=== PATIENT | female | born 1960 | race Two or more races ===

== ENCOUNTER 2024-05-14 18:28 | Emergency (ER) | payer MEDICARE, SELFPAY ==
--- NOTE | 2024-05-14 | ECG_ITS ---
Test Reason : CP Blood Pressure : */* mmHG Vent. Rate : 95 BPM Atrial Rate : 95 BPM P-R Int : 164 ms QRS Dur : 76 ms QT Int : 336 ms P-R-T Axes : 43 24 24 degrees QTcB Int : 422 ms Normal sinus rhythm Normal ECG No previous ECGs available Referred By: Generic ED Physician Electronically Signed By: SUZY MONTES MD
--- NOTE | ~2024-05-14 | XR_ITS ---
CLINICAL HISTORY: productive cough, cp EXAM: Two views of the chest. COMPARISON: None FINDINGS: Normal cardiac, mediastinal, and hilar contours. Normal heart size. No pleural effusion or pneumothorax. Lungs are clear. No acute bone finding. IMPRESSION: 1. No acute cardiopulmonary process demonstrated. This document has been electronically signed by: Michael Sibley MD on 05/14/2024 21:11:38
--- NOTE | ~2024-05-14 | CT_ITS ---
CLINICAL HISTORY: wry neck CT cervical spine without contrast Comparison: None Findings: The alignment of the cervical spine is normal. There is no fracture. Disc bulge at C5-6 probably causes mild central canal stenosis and disc bulge at C6-7 may cause moderate central canal stenosis. There is multilevel mild facet and uncovertebral joint osteoarthritis with associated mild neuroforaminal stenoses. There is mild carotid artery calcification. IMPRESSION: 1. No acute findings. 2. Cervical spondylosis. This document has been electronically signed by: Neal Chase MD on 05/15/2024 03:46:54
[2024-05-14 18:40] VITALS: BP 129/78; PULSE 94; O2SAT 98
--- NOTE | 2024-05-14 19:10 | ED.GENADULT ---
HPI - General Adult General Chief complaint: Chest Pain Stated complaint: chest pain upon respiration Time Seen by Provider: 05/15/24 01:43 Source: patient Limitations: no limitations History of Present Illness ED Provider: Flavia Bear PA-C HPI narrative: 64 y/o F with hx of osteoarthritis, presents with neck pain x5 days. Patient states she has been sleeping on an air mattress over the past month. She has had progressive discomfort of the left lateral neck, that radiates to the left shoulder and upper back at times. Patient states her neck has become progressively stiff. Denies weakness of left upper extremity, chest pain, paresthesia. Denies recent illness or fever. There was no preceding trauma. Patient does not have a headache. Related Data Previous Rx's ?Medication ?Instructions ?Recorded diazepam 5 mg tablet (Valium) 5 mg PO BID-TID PRN pain, moderate 05/15/24 #15 tabs ketorolac 10 mg tablet 10 mg PO Q6H PRN pain #20 tabs 05/15/24 Allergies Allergy/AdvReac Type Severity Reaction Status Date / Time No Known Allergies Allergy Verified 05/14/24 19:16 Review of Systems Review of Systems: Yes all other systems are reviewed and are negative Constitutional: Constitutional: Denies fatigue, Denies fever(s) and Denies headache(s) ENT: Denies dizziness, Denies headache(s) and Reports neck pain Cardiovascular: Cardiovascular: Denies chest pain and Denies dyspnea Respiratory: Respiratory: Denies cough and Denies dyspnea Gastrointestinal: Gastrointestinal: Denies abdominal pain, Denies nausea and Denies vomiting Musculoskeletal: Musculoskeletal: Reports back pain, Denies muscle weakness, Reports neck pain, Denies numbness and Denies tingling Neurologic: Denies dizziness, Denies headache(s), Denies numbness and Denies tingling Endocrine: Endocrine: Denies fatigue PMF Past Medical History Attestation statement: The following information was validated with the patient. Physical Exam ED Vital Signs: Vital Signs - 24 hr 05/14/24 19:14 05/15/24 01:00 05/15/24 02:59 Temperature 99.0 F 98.3 F 98.2 F Pulse Rate 96 102 H 99 Respiratory Rate 16 15 18 Blood Pressure 148/70 H 138/83 129/86 Pulse Oximetry 97 100 96 Oxygen Delivery Method Room Air Room Air Room Air BMI result Body Mass Index 33.3 Const Other: Alert Orientation/consciousness: patient oriented x3 Neck Other: Wry neck, patient holding her head to the right side, minimal range of motion in all directions, pain elicited over left lateral neck and upper back with range of motion. After being medicated with a muscle relaxant and anti-inflammatory, the patient's range of motion dramatically improved no meningeal signs Resp Effort & Inspection: normal respiratory effort Cardio Other: Normal peripheral perfusion Skin Other: Warm dry no rash Neuro General: patient oriented x3, no focal motor deficits and CN's II-XI intact bilaterally Extrem Other: Strength 5/5 bilateral upper extremities with resistance Psych Other: Cooperative Course Course Course Narrative: RME, this is a rapid medical exam performed by Fantasma Evans please refer to primary provider for complete H&P- 64 year old female presents for evaluation of chest pain for the last 5 days. She also complains of neck pain and stiffness. She arrives by ambulance from urgent care. She had an ekg and labs, chest x-ray are ordered. Her pain seems most consistent with musculoskeletal origin. Reevaluation(s) Reevaluation #1: After being medicated, the patient's range of motion dramatically improved. Medications Administered Discontinued Medications Generic Name Dose Route Start Last Admin Trade Name Freq PRN Reason Stop Dose Admin Diazepam 5 mg 05/15/24 02:37 05/15/24 02:55 Diazepam 5 Mg Tablet PO 05/15/24 02:38 5 mg ONCE ONE Administration Ketorolac Tromethamine 15 mg 05/15/24 02:37 05/15/24 02:55 Ketorolac Tromethamine 15 Mg/Ml Vial IM 05/15/24 02:38 15 mg ONCE ONE Administration Methylprednisolone 8 mg 05/15/24 02:37 05/15/24 03:52 Methylprednisolone 4 Mg Tablet PO 05/15/24 02:38 8 mg ONCE ONE Administration Medical Decision Making Medical Decision Making [facility] Narrative: 64 y/o F with hx of osteoarthritis, presents with neck pain x5 days. Patient states she has been sleeping on an air mattress over the past month. She has had progressive discomfort of the left lateral neck, that radiates to the left shoulder and upper back at times. Patient states her neck has become progressively stiff. Denies weakness of left upper extremity, chest pain, paresthesia. Denies recent illness or fever. There was no preceding trauma. Patient does not have a headache. Problem: Known arthritis History: Per patient I have considered the following differential diagnoses: Cervical strain/spasm, arthritis, meningitis, compression fracture Plan: The patient is here with a stiff neck. We will be obtaining imaging. We will be giving Valium and an anti-inflammatory. Thought about meningitis, however she has had no underlying illness she is afebrile, her exam was not consistent with meningitis, there are no true meningeal signs on exam. She could have a compression fracture, however there was no trauma. I have independently reviewed the following tests: CT neck: Findings: The alignment of the cervical spine is normal. There is no fracture. Disc bulge at C5-6 probably causes mild central canal stenosis and disc bulge at C6-7 may cause moderate central canal stenosis. There is multilevel mild facet and uncovertebral joint osteoarthritis with associated mild neuroforaminal stenoses. There is mild carotid artery calcification. IMPRESSION: 1. No acute findings. 2. Cervical spondylosis. This document has been electronically signed by: Neal Chase MD on 05/15/2024 03:46:54 Lab Data 05/14/24 20:22 05/14/24 20:23 Labs: Lab Results 05/14/24 05/14/24 Range/Units 20:22 20:23 WBC 10.9 H (4.8-10.8) X10*3/uL RBC 5.15 (4.20-5.50) X10*6/uL Hgb 13.4 (12.0-16.0) g/dl Hct 38.4 (37.0-47.0) % MCV 74.6 L (80.0-98.0) fL MCH 26.0 L (27.0-33.0) pg MCHC 34.9 (31.0-35.0) g/dl RDW 15.0 (11.0-16.0) % Plt Count 276 (160-400) X10*3/uL MPV 10.1 (9.4-12.3) fL Immature Gran % (Auto) 0.4 (0.0-0.4) % Neut % (Auto) 62.4 (45-73) % Lymph % (Auto) 27.5 (20-40) % [place] % (Auto) 8.5 (2-11) % Eos % (Auto) 0.6 (0-4) % Baso % (Auto) 0.6 (0-2) % Lymph # (Auto) 3.0 (1.2-4.9) X10*3/uL [place] # (Auto) 0.9 (0.1-1.2) X10*3/uL Eos # (Auto) 0.1 (0.0-0.4) X10*3/uL Baso # (Auto) 0.1 (0.0-0.2) X10*3/uL Abs Immat Gran (auto) 0.04 H (0.00-0.03) X10*3/uL Absolute Neuts (auto) 6.8 (2.0-8.3) x10*3/uL Absolute Nucleated RBC 0.000 (0.0-0.012) X10*3/uL Nucleated RBC % (auto) 0.0 (0.0-0.2) /100WBC Sodium 139 (135-145) mmol/L Potassium 3.9 (3.3-5.1) mmol/L Chloride 106 (96-108) mmol/L Carbon Dioxide 25 (22-29) mmol/L Anion Gap 12 (12-20) BUN 8 L (9-16) mg/dL Creatinine 0.80 (0.5-1.4) mg/dL Estim Creat Clear Calc 76.9 Estimated GFR > 60 Random Glucose 107 (60-115) mg/dL Calcium 9.1 (8.4-10.2) mg/dL Total Bilirubin 0.6 (0.0-1.0) mg/dL AST 17 (5-31) U/L ALT 9 (0-31) U/L Alkaline Phosphatase 87 (39-117) U/L Troponin I High Sens < 2.7 (<3.5-17.0) ng/L Total Protein 8.7 H (6.5-8.0) g/dL Albumin 4.0 (3.5-5.0) g/dL Influenza Type A (PCR) NEGATIVE (Negative) Influenza Type B (PCR) NEGATIVE (Negative) RSV RNA Qual (PCR) NEGATIVE (Negative) SARS-CoV-2 RNA (RT-PCR) NEGATIVE (Negative) Discharge Plan Discharge Clinical Impression: Cervical disc disease, Cervical arthritis, Cervical radiculopathy Patient Disposition: Home, Self-Care Instructions: Osteoarthritis (ED), Cervical Disc Herniation (ED), Cervical Radiculopathy (ED) Additional Instructions: The CT scan of your cervical spine revealed that you have significant degenerative changes in your cervical spine, this is the likely cause of your discomfort and muscle pain and spasm. See home care instructions. Use the ketorolac as directed, this is an anti-inflammatory, take it with food. Use the Valium as needed for additional pain. To note this medication will cause drowsiness, do not drive or operate machinery while taking this medication. You need to follow up with the primary care, you likely will require a inventory specialist manager to manage these degenerative changes. Prescriptions: New diazepam [Valium] 5 mg tablet 5 mg PO BID-TID PRN (Reason: pain, moderate) Qty: 15 0RF ketorolac 10 mg tablet 10 mg PO Q6H PRN (Reason: pain) Qty: 20 0RF Rx Instructions: maximum total duration of 5 days from all oral, intranasal, or parenteral formulations. The patient received an intramuscular dose of Toradol here in the emergency department. Interventions: ED Discharge Assessment Last Done: 05/15/24 04:43 Discharge Date/Time: 05/15/24 05:11 Print Language: Greek
[2024-05-14 19:14] VITALS: BP 148/70; PULSE 96; RESP 16; TEMP 37.2; O2SAT 97; BMI 33.3
--- OUTSIDE RECORDS SUMMARY | 2024-05-14 19:34 | XMS_ITS | CCD ---
Author Organization [facility] [place] [address] [address] [place] [address] Care Team Providers Care Marketing Specialist Name Role Phone Unavailable Primary Care Provider Unavailabl e Allergies No known active allergies Medications gabapentin (NEURONTIN) 100 mg capsule Take 800 mg by mouth in the morning and 800 mg in the evening and 800 mg before bedtime. Active lidocaine (LIDODERM) 5 % patch 12/06/2023 Active omeprazole (PriLOSEC) [address] capsule Active tiZANidine (ZANAFLEX) 2 mg tablet Take 1 tablet every 8 hours by oral route as needed for 30 days. Active gabapentin (NEURONTIN) 800 mg tablet Take 1 tablet 3 times a day by oral route. Active amoxicillin (AMOXIL) 500 mg capsule Take 2 (two) tablets immediately. Then take 1 (one) tablet every 8 hours until finished. 18 capsule 12/19/2023 Active Active Problems Problem Noted Date Diagnosed Date Rheumatoid arthritis 08/23/2023 Chronic pain 08/23/2023 Social History Tobacco Use Types Packs/Day Years Used Date Smoking Tobacco: Never Assessed Comments Unknown Sex and Gender Information Value Date Recorded Sex Assigned at Not on file Legal Sex Female 11:55 AM PDT Gender Identity Not on file Sexual Orientation Not on file Last Filed Vital Signs Vital Sign Reading Time Taken Comments Blood Pressure 110/68 01/03/2024 1:22 PM PDT Pulse 78 01/03/2024 1:22 PM PDT Temperature - - Respiratory Rate - - Oxygen Saturation - - Inhaled Oxygen Concentration - - Weight - - Height - - Body Mass Index - - Plan of Treatment Not on file Procedures Procedure Name Priority Date/Time Associated Diagnosis Comments UL PERIODONTAL SCALING AND ROOT PLANING - FOUR OR MORE TEETH PER QUADRANT Routine 01/04/2024 1:00 PM PDT ADJUNCTIVE PRE-DIAGNOSTIC TEST THAT AIDS IN DETECTION OF MUCOSAL ABNORMALITIES Routine 01/03/2024 1:15 PM PDT PERIODIC ORAL EVALUATION - ESTABLISHED PATIENT Routine 01/03/2024 1:15 PM PDT Encounter for dental examination and cleaning without abnormal findings PANORAMIC RADIOGRAPHIC IMAGE Routine 08/23/2023 2:00 PM PDT from Last 3 Months or Most Recently Relevant to Health Maintenance
--- OUTSIDE RECORDS SUMMARY | 2024-05-14 19:34 | XMS_ITS ---
Author Organization [facility] [place] [address] [place] [address] Care Team Providers Care Food Service Associate Name Role Phone Unavailable Unavailable Unavailable Surgery Details Not on file Complications Check Surgery Details section. Procedure Estimated Blood Loss Check Surgery Details section. Procedure Findings Check Surgery Details section. Procedure Specimens Taken Check Surgery Details section.
--- OUTSIDE RECORDS SUMMARY | 2024-05-14 19:34 | XMS_ITS | Clinical Summary ---
Author Organization [facility] Address [address] [place] [address] Care Team Providers Care Realtime Captioner Name Role Phone Unavailable Primary Care Provider [...] Mass Index - - Plan of Treatment Health Maintenance Due Date Last Done Comments Periodontal Maintenance 1958 Velscope Screening 07/03/2024 01/03/2024 Dental Oral Exam 07/04/2024 01/03/2024 Dental X-Ray: Bitewings 07/04/2024 01/03/2024 Scaling and Root Planing 2026 01/04/2024, 05/2023 Dental X-Ray: Panoramic 08/24/2026 08/24/2023, 08/22 Dental X-Ray: Full Mouth 01/04/2027 01/04/2024 Meningococcal B Vaccine Aged Out No l onger eligible based on patient's age to complete this topic Procedures Procedure Name Priority Date/Time Associated Diagnosis [...] or Most Recently Relevant to Health Maintenance Insurance [employer] [facility] DUAL COMPLETE PPO
--- OUTSIDE RECORDS SUMMARY | 2024-05-14 19:34 | XMS_ITS | Encounter Summary ---
Author Organization [facility] Address [address] [place] [address] Care Team Providers Care Transitional Studies Instructor Name Role Phone Unavailable Primary Care Provider Unavailabl e Prior Encounters Date Type Department Care Team Description 01/24/2024 Telephone [facility] [address], [facility] [address] [place] [phone] Ubaldo Barnes, RENEA 01/04/2024 1:00 PM PDT Office Visit [facility] [address], [place] [address] [place] [phone] Mel Harkins RDH 01/03/2024 1:15 PM PDT Office Visit [facility] [address], [facility] [address] [place] [phone] Ubaldo Barnes, RENEA Dental caries, unspecified (Primary Dx); Unspecified diseases of pulp and periapical tissues; Encounter for dental examination and cleaning without abnormal findings 12/20/2023 Telephone [facility] [address], [place] [address] [place] [address] Ubaldo Barnes, RENEA 12/19/2023 10:00 AM PDT Office Visit [facility] [address], [place] [address] [place] [address] Ubaldo Barnes, RENEA Tooth pain (Primary Dx); Unspecified diseases of pulp and periapical tissues 12/02/2023 Orders Only [facility] [address], [place] [address] [place] [phone] Ubaldo Barnes DMD 12/02/2023 Telephone [facility] [address], [place] [address] [place] [phone] Ubaldo Barnes DMD 11/02/2023 Orders Only [facility] [address] [place], [place] [address] [place] [phone] Ubaldo Barnes, RENEA Tooth pain (Primary Dx) 10/18/2023 Telephone [facility] [address] [place], [place] [address] [place] [address] Ubaldo Barnes DMD 08/23/2023 2:00 PM PDT [address] [facility] [address] [place] [address] [place] [phone] Ubaldo Barnes, RENEA Unspecified diseases of pulp and periapical tissues (Primary Dx) Last Filed Vital Signs Vital Sign Reading [...] PER QUADRANT Routine 01/04/2024 1:00 PM PDT 18 LL PERIODONTAL SCALING AND ROOT PLANING - ONE TO THREE TEETH PER QUADRANT Routine 01/04/2024 1:00 PM PDT ADJUNCTIVE PRE-DIAGNOSTIC TEST THAT AIDS IN DETECTION OF MUCOSAL ABNORMALITIES Routine 01/03/2024 1:15 PM PDT INTRAORAL PHOTO Routine 01/03/2024 1:15 PM PDT INTRAORAL PHOTO Routine 01/03/2024 1:15 PM PDT INTRAORAL PHOTO Routine 01/03/2024 1:15 PM PDT INTRAORAL PHOTO Routine 01/03/2024 1:15 PM PDT SINGLE X-RAY Routine 01/03/2024 1:15 PM PDT BITEWINGS - FOUR RADIOGRAPHIC IMAGES Routine 01/03/2024 1:15 PM PDT ADDITIONAL X-RAY Routine 01/03/2024 1:15 PM PDT ADDITIONAL X-RAY Routine 01/03/2024 1:15 PM PDT ADDITIONAL X-RAY Routine 01/03/2024 1:15 PM PDT PERIODIC ORAL EVALUATION - ESTABLISHED PATIENT Routine 01/03/2024 1:15 PM PDT Encounter for dental examination and cleaning without abnormal findings 15 DOL AMALGAM FILLING Routine 12:00 AM PDT 2 MANDIE AMALGAM FILLING Routine 01/03/2024 12:00 AM PDT 27 GUIDED TISSUE REGENERATION, EDENTULOUS AREA - RESORBABLE BARRIER, PER SITE Routine 12/19/2023 10:00 AM PDT 27 BONE REPLACEMENT GRAFT FOR RIDGE PRESERVATION - PER SITE - MANDIBLE Routine 12/19/2023 10:00 AM PDT 27 EXTRACTION, ERUPTED TOOTH REQUIRING REMOVAL OF BONE AND/OR SECTIONING OF TOOTH Routine 12/19/2023 10:00 AM PDT Unspecified diseases of pulp and periapical tissues CBCT - PROBLEM FOCUSED Routine 2:00 PM PDT PANORAMIC RADIOGRAPHIC IMAGE Routine 08/23/2023 2:00 PM PDT BITEWING - SINGLE RADIOGRAPHIC IMAGE Routine 08/23/2023 2:00 PM PDT ADDITIONAL X-RAY Routine 08/23/2023 2:00 PM PDT SINGLE X-RAY Routine 08/23/2023 2:00 PM PDT LIMITED ORAL EVALUATION - PROBLEM FOCUSED Routine 08/23/2023 2:00 PM PDT 20 O AMALGAM FILLING Routine 08/23/2023 12:00 AM PDT 18 O AMALGAM FILLING Routine 08/23/2023 12:00 AM PDT 29 DO AMALGAM FILLING Routine 08/23/2023 12:00 AM PDT Visit Diagnoses Diagnosis Start Date Unspecified diseases of pulp and periapical tissues 08/23/2023 Tooth pain Unspecified disorder of the teeth and supporting structures 11/02/2023 Tooth pain Unspecified disorder of the teeth and supporting structures 12/19/2023 Unspecified diseases of pulp and periapical tissues 12/19/2023 Dental caries, unspecified 01/03/2024 Unspecified diseases of pulp and periapical tissues 01/03/2024 Encounter for dental examination and cleaning without abnormal findings 01/03/2024 Insurance [place] [employer] [facility] DUAL COMPLETE PPO
[2024-05-14 20:30] LABS: Basophils Absolute Auto 0.1 X10*3/uL (0.0-0.2); Basophils Percent Auto 0.6 % (0-2); Eosinophils Absolute Auto 0.1 X10*3/uL (0.0-0.4); Eosinophils Percent Auto 0.6 % (0-4); Hematocrit 38.4 % (37.0-47.0); Hemoglobin 13.4 g/dl (12.0-16.0); Imm Gran Abs Auto 0.04 X10*3/uL (0.00-0.03); Imm Gran Pct Auto 0.4 % (0.0-0.4); Lymphocytes Percent Auto 27.5 % (20-40); MANUAL DIFF FLAG NO; Mean Corpuscular HGB Conc 34.9 g/dl (31.0-35.0); Mean Corpuscular Volume 74.6 fL (80.0-98.0); Mean Platelet Volume 10.1 fL (9.4-12.3); Monocytes Absolute Auto 0.9 X10*3/uL (0.1-1.2); Monocytes Percent Auto 8.5 % (2-11); Neutrophils Absolute Auto 6.8 x10*3/uL (2.0-8.3); Neutrophils Percent Auto 62.4 % (45-73); Platelet Count 276 X10*3/uL (160-400); Red Blood Count 5.15 X10*6/uL (4.20-5.50); White Blood Count 10.9 X10*3/uL (4.8-10.8)
[2024-05-14 20:43] LABS: Alanine Aminotransferase 9 U/L (0-31); Alkaline Phosphatase 87 U/L (39-117); Anion Gap 12 (12-20); Aspartate Amino Transferase 17 U/L (5-31); Bilirubin Total 0.6 mg/dL (0.0-1.0); Blood Urea Nitrogen 8 mg/dL (9-16); Calcium 9.1 mg/dL (8.4-10.2); Carbon Dioxide 25 mmol/L (22-29); Chloride 106 mmol/L (96-108); Creatinine Clr Calc Pharmacy 76.9; Estimated Glomerular Filt Rate > 60; Glucose Random 107 mg/dL (60-115); Potassium 3.9 mmol/L (3.3-5.1); Sodium 139 mmol/L (135-145); Total Protein 8.7 g/dL (6.5-8.0)
[2024-05-14 20:51] LABS: Troponin-I High Sensitivity < 2.7 ng/L (<3.5-17.0)
[2024-05-14 21:11] LABS: Influenza A PCR NEGATIVE (Negative); Influenza B PCR NEGATIVE (Negative); Resp Syncy Virus RNA Qual PCR NEGATIVE (Negative); SARS COV2 PCR INHOUSE NEGATIVE (Negative)
[2024-05-15 01:00] VITALS: BP 138/83; PULSE 102; RESP 15; TEMP 36.8; O2SAT 100
[2024-05-15] MEDS: diazePAM 5 MG TABLET PO (02:55)
[2024-05-15] MEDS: Ketorolac Tromethamine 15 MG/ML VIAL IM (02:55)
[2024-05-15 02:59] VITALS: BP 129/86; PULSE 99; RESP 18; TEMP 36.8; O2SAT 96
[2024-05-15] MEDS: methylPREDNISolone 4 MG TABLET 8 MG PO (03:52)
[2024-05-15 04:00] VITALS: BP 100/62; PULSE 90; RESP 18; TEMP 36.8; O2SAT 100
[2024-05-15 04:43] VITALS: BP 100/62; PULSE 90; RESP 18; TEMP 36.8; O2SAT 100
== END 2024-05-15 05:11 | disposition home or self-care (01) ==
PROVIDERS: Emergency Provider Emergency Medicine
DX: M50.90 Cervical disc disorder, unspecified, unspecified cervical region (principal); M47.812 Spondylosis without myelopathy or radiculopathy, cervical region; M54.12 Radiculopathy, cervical region; R07.9 Chest pain, unspecified; Z03.818 Encounter for observation for suspected exposure to other biological agents ruled out
CPT/HCPCS: 0241U; 71046; 72125; 80053; 84484; 85025; 93005; 96372; 99284; 99285; J1885

== ENCOUNTER → 2024-05-14 18:43 | Outpatient (BNV) | payer MEDICARE, SELFPAY | PROVIDERS: Emergency Provider Emergency Medicine; Visit Provider Internal Medicine Cardiovascular Disease | DX: R07.9 Chest pain, unspecified (principal) | CPT/HCPCS: 93010 ==

== ENCOUNTER → 2024-05-14 19:45 | Outpatient (BNV) | payer MEDICARE, SELFPAY | PROVIDERS: Visit Provider Radiology Diagnostic Radiology | DX: R07.9 Chest pain, unspecified (principal); R05.8 Other specified cough | CPT/HCPCS: 71046 ==

== ENCOUNTER → 2024-05-15 02:37 | Outpatient (BNV) | payer MEDICARE, SELFPAY | PROVIDERS: Emergency Provider Emergency Medicine; Visit Provider Radiology Diagnostic Radiology | DX: M47.812 Spondylosis without myelopathy or radiculopathy, cervical region (principal) | CPT/HCPCS: 72125 ==

== ENCOUNTER 2025-03-29 12:58 | Outpatient (AMB) | payer OTHER, SELFPAY ==
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
--- OUTSIDE RECORDS SUMMARY | 2025-03-29 13:04 | XMS_ITS | Clinical Summary ---
Author Organization [facility] Health Address [address] [place] [address] Care Team Providers Care Correction Officer Supervisor Name Role Phone Unavailable Primary Care Provider [...] 08/22 Dental X-Ray: Full Mouth 01/04/2027 01/04/2024 Procedures Procedure Name Priority Date/Time Associated Diagnosis [...] Most Recently Relevant to Health Maintenance Insurance [facility] COMMERCIAL [facility] DUAL COMPLETE PPO
--- OUTSIDE RECORDS SUMMARY | 2025-03-29 13:04 | XMS_ITS | Encounter Summary ---
Author Organization [facility] Health Address [address] [place] [address] Care Team Providers Care Route Delivery Manager Name Role Phone Unavailable Primary Care Provider Unavailabl e Prior Encounters Date Type Department Care Team Description 01/24/2024 Telephone [facility] [address], [facility] [place] [phone] Ubaldo Barnes, RENEA 01/04/2024 1:00 PM PDT Office Visit [facility] [address], [facility] [place] [phone] Mel Harkins [facility] 01/03/2024 1:15 PM PDT Office Visit [facility] [address], [facility] [address] [place] [address] Ubaldo Barnes, RENEA Dental caries, unspecified (Primary Dx); Unspecified diseases of pulp and periapical tissues; Encounter for dental examination and cleaning without abnormal findings 12/20/2023 Telephone [facility] [address], [facility] [address] [place] [address] Ubaldo Barnes, RENEA 12/19/2023 10:00 AM PDT Office Visit [facility] [address], [facility] [address] [place] [address] Ubaldo Barnes, DMD Tooth pain (Primary Dx); Unspecified diseases of pulp and periapical tissues 12/02/2023 Orders Only [facility] [address], [facility] [address] [place] [address] Ubaldo Barnes, RENEA 12/02/2023 Telephone [facility] [address], [facility] [address] [place] [phone] Ubaldo Barnes DMD 11/02/2023 Orders Only [facility] of [address] [place], [place] [address] [place] [phone] Ubaldo Barnes, RENEA Tooth pain (Primary Dx) 10/18/2023 Telephone [facility] [address] [place], [place] [address] [place] [address] Ubaldo Barnes DMD 08/23/2023 2:00 PM PDT Office Visit [facility] [address], [place] [address] [place] [phone] Ubaldo Barnes, RENEA Unspecified diseases of pulp [...] and cleaning without abnormal findings 01/03/2024 Insurance [email or web address] [facility] DUAL COMPLETE PPO
[2025-03-29 13:12] VITALS: BP 114/72; PULSE 69; RESP 16; TEMP 36.8; O2SAT 98; BMI 35.0
== END 2025-03-29 13:53 | disposition home or self-care (01) ==
PROVIDERS: PCP Student in an Organized Health Care Education/Training Program; Visit Provider Student in an Organized Health Care Education/Training Program
DX: E66.812 Obesity, class 2 (principal); M54.9 Dorsalgia, unspecified; G89.29 Other chronic pain; R20.0 Anesthesia of skin; Z97.4 Presence of external hearing-aid; H91.90 Unspecified hearing loss, unspecified ear; M19.90 Unspecified osteoarthritis, unspecified site; M25.561 Pain in right knee; M51.26 Other intervertebral disc displacement, lumbar region; M47.819 Spondylosis without myelopathy or radiculopathy, site unspecified; M47.812 Spondylosis without myelopathy or radiculopathy, cervical region; Z87.11 Personal history of peptic ulcer disease; R06.09 Other forms of dyspnea; K59.00 Constipation, unspecified; R20.2 Paresthesia of skin; Z99.89 Dependence on other enabling machines and devices; R26.81 Unsteadiness on feet

== ENCOUNTER 2025-03-29 12:58 | Outpatient (REF) | payer OTHER, SELFPAY ==
--- OUTSIDE RECORDS SUMMARY | 2025-03-29 14:03 | XMS_ITS | Continuity of Care Document ---
Author Organization [place] - [facility], [facility] Address [address] [place] [address] Care Team Providers Care Manager Hospice Name Role Phone SUBHA CLIFTON Primary Care Provider [phone] Assessment Encounter Date Assessment Date Assessment LastModified by Organization Details LastModified Time 01/08/2025 01/08/2025 64yo female status post left-sided otologic surgery with Dr. Perry at [facility] 40+ years ago presents for evaluation of longstanding hearing loss. Otologic exam demonstrates TMs are intact with well-aerated middle ear spaces. Right TM with general retraction. Audiometric testing demonstrates right-sided severe to profound conductive hearing loss and left severe to profound sensorineural hearing loss, stable compared to testing at [facility] in 2013. Patient is medically cleared for amplification, and was provided with appropriate documentation today. As her [place] bilateral amplification [place], she was provided with a list of audiologists that take her insurance for hearing aids adjustments or replacement. As auditory thresholds are essentially stable, will defer MRI of the IACs to rule out retrocochlear pathology. Patient will return for middle ear evaluation with Dr. Allen. Recommend follow up in 1-2 years with repeat audiometric testing, or sooner with any concerns. [email or web address] Not available 01/08/2025 18:37:03 Plan of Treatment Reminders Order Date Submit Date Provider Last Modified By Organization Details Last Modified Time Details Appointments None record ed. Lab None record ed. Referral None record ed. Procedures None record ed. Surgeries None record ed. Imaging None record ed. Medication Orders None record ed. Patient TargetsNo targets recorded. Patient InstructionsNo instructions recorded. Reason for Referral None Reported. Results Created Date Observation Date Name Description Value Unit Range Abnormal Flag Note LastModifiedBy Organization Detail LastModifiedTime 01/09/20 audio gram No observ ation record ed. BARCODE Not Available 2024 16:39:48 01/09/20 25 02/15/2013 audio gram No observ ation record ed. Not Available 10/2024 16:50:17 Result Notes None recorded. Problems Name Problem SNOMED Code Status Onset Date Resolution Date Notes Provider Name and Address Organization Details Recorded Time Mixed conductive and sensorineur al hearing loss, bilateral 344464080 Active 2024 MARIUM TUCKER, AUD [address] [facility],[address] [address], [place], [address], [facility] - [facility] 14:27:51 Otosclerosi s 70991193 Active 2024 RICARDO ALLEN MD [address] [address], [place], [address], [facility] 20:31:01 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 Procedures Surgical History Date Name Laterality Status Provider Name and Address Organization Details Recorded Time 01/08/2025 Comp Audio with Tymps - 65081 & 55953 completed MARIUM TUCKER, AUD 100 [facility],[address], [address], [facility] 01/08/2025 14:27:44 Imaging Results None recorded. Procedure Notes None recorded. Medical Equipment None Reported. Allergies No known drug allergies Medications Name Sig Start Date Stop Date Status Note LastModified by Organization Details LastModified Time celecoxib 200 mg capsule TAKE 1 CAPSULE BY MOUTH two (2) times a day NEEDED FOR PAIN FOR 7 DAYS active Not Available Not Available No t Available amoxicillin 875 mg-potassium clavulanate 125 mg tablet TAKE 1 TABLET BY MOUTH two (2) times a day FOR 7 DAYS 02/23 completed Not Available Not Available Not Available chlorhexidin e gluconate 0.12 % mouthwash SWISH 15mls IN MOUTH FOR 30 SECONDS THEN SPIT OUT. USE two (2) times a day active Not Available Not Available No t Available Vitals None Recorded Social History None recorded. Functional Status None recorded. Mental Status None recorded. Family History Nothing Reported. Medical History Condition Response Arthritis Y Gynecological HistoryNo gynecological history recorded. Obstetrics History GPAL:G 0 P 0 0 0 0 Past Encounters Encounter ID Performer Location Encounter Start Date Encounter Closed Date Diagnosis/Indication Diagnosis SNOMED-CT Code Diagnosis ICD10 Code Diagnosis IMO Codes Diagnosis Note [id number] ZAIRE FIGUEROA PA-C [facility] [address] [address] 01/08/2025 14:02:36 01/08/2025 17:03:26 Mixed conductive and sensorineural hearing loss, bilateral 650306406 H90.6 5593630 Right Ear:Severe to profound MHL with excellent speech discrimina tion.Type A tympanogra m.Left Ear:Severe to profound MHL with excellent speech discrimina tion.Type A tympanogra m. Health Concerns Section Related Observation LastModified by Organization Detai ls LastModified Time None Recorded Concern Status LastModified by Organization Details LastModified Time None Recorded Payers Encounter Date Sequence Insurance Name Policy Number Policy Vega Covered Member ID Vega Member ID Guarantor Name 01/08/2025 1 [facility] (MEDICARE REPLACEMENT/ ADVANTAGE - PPO) [id number] Tata Stein [id number] Tata Stein 01/08/2025 1 [place] [facility] Tata Stein [id number] Tata Stein Notes Date Note Type Note Provider Name and Address Organization Details Recorded Time 01/08/2025 text/html ROS as noted in the HPI 64yo female presents for evaluation of hearing loss. This has been gradual for decades. She started wearing hearing aids bilaterally in 1986. Her current hearing aids were dispensed in [place] last year. The right sided hearing aid is broken which prompted her visit today to be connected with an bottle dealer in the area. Denies tinnitus or vertigo. History of vague otologic surgery on the left ear with Dr. Perry at [facility] approximately 42 years ago. She reports a bone in the ear was scraped. She endorses improvement after surgery but lasted only a couple months. No family history of hearing loss early in life. Denies recurrent ear infections or ear drainage. ZAIRE FIGUEROA PA-C [address] [place] [address], [place], [address], [facility] - [facility] 01/08/2025 18:37:26 OBGyn Episode No OBEpisode recorded.
--- OUTSIDE RECORDS SUMMARY | 2025-03-29 14:03 | XMS_ITS | Continuity of Care Document ---
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 The pathophysiology of otosclerosis was discussed with the patient, and the stapes brochure discussed in detail. We discussed the available options including the use of amplification as well as surgical options. We discussed laser stapedotomy with vein graft in detail, going over the surgical steps in the brochure. We discussed the 1% risk of partial or complete sensorineural hearing loss as a result of surgery, the 3-4% risk that the hearing will stay the same after surgery, but overall a 95% chance that the patient will experience a significant improvement in the hearing in the operated ear. We discussed the risks of surgery including the risk of bleeding, infection, temporary or permanent taste disturbance, temporary or long-term balance disturbance, tinnitus, or tympanic membrane perforation. We also discussed the need to harvest a small vein graft from the back of the hand to serve as a seal around the base of the prosthesis as it enters the inner ear to reduce the risk of perilymphatic fistula or sensorineural hearing loss. We discussed anesthetic options including a general anesthetic versus a local anesthetic with intravenous sedation. In this situation, I would recommend starting on the right ear which has not been previously operated on which gives us a much higher chance of success. We would discuss revision stapes surgery on the left following complete healing of the right side. We did discuss the fact that even with a completely successful surgery she will still have a mild to moderate level of baseline sensorineural hearing loss which should be much more easily remedied with the use of a less powerful hearing aid. After full discussion, the patient would like to proceed with right sided stapes surgery under general anesthesia. I have provided patient with the contact information for my surgical supply assistant. We will begin the scheduling process and see the patient back at the time of surgery. Patient will require medical clearance from their primary care provider preoperatively. In the meantime, I have given her the copy of her audiogram and the number to the [facility] hearing aid program to make sure that she can have her current hearing aids adjusted appropriately. [email or web address] Not available 02/26/2025 11:43:18 Plan of Treatment Reminders Order Date Submit Date Provider Last Modified By Organization Details Last Modified Time Details Appointments None recorded. Lab None recorded. Referral None recorded. Procedures None recorded. Surgeries stapedecto my/stapedo marika w/ reestablis hment of ossicular continuity (SURG) 2024 025 [email or web address] Not available 12:04:13 Imaging None recorded. Medication Orders None recorded. Patient TargetsNo targets recorded. Patient InstructionsNo instructions recorded. Reason for Referral None Reported. Problems Name Problem SNOMED Code Status Onset Date Resolution Date Notes Provider Name and Address Organization Details Recorded Time Mixed conductive and sensorineur al hearing loss, bilateral 217392052 Active 2024 BONNIE SCHAFFER [address] [address], [place], [address], [facility] - [facility] 5 14:27:51 Otosclerosi s 96268372 Active 2024 RICARDO ALLEN MD [address] [place] [address], [place], [address], [facility] 5 20:31:01 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 Procedures Surgical History Date Name Laterality Status Provider Name and Address Organization Details Recorded Time 01/08/2025 Comp Audio with Tymps - 86827 & 00033 completed BONNIE SCHAFFER [address] [place] [address],[address] [address], [place], [address], [place] - [facility] 01/08/2025 14:27:44 Imaging Results None recorded. [...] ICD10 Code Diagnosis IMO Codes Diagnosis Note [id number] RICARDO ALLEN MD [facility] of [address] [address] 02/26/2025 11:03:18 02/26/2025 11:41:53 Mixed conductive and sensorineural hearing loss, bilateral 796620195 H90.6 9487900 Bilateral otosclerosis of ossicle of ears 8645166258 567469 H80.83 [id number] Health Concerns Section Related Observation LastModified by Organization Detai ls LastModified Time None Recorded Concern Status LastModified by Organization Details LastModified Time None Recorded Payers Encounter Date Sequence Insurance Name Policy Number Policy Vega Covered Member ID Vega Member ID Guarantor Name 02/26/2025 1 [facility] - DOS ON OR AFTER 2022 - ONE [employer] (MEDICARE REPLACEMENT/ADV ANTAGE - HMO) Tata Stein [id number] Tata Stein Notes Date Note Type Note Provider Name and Address Organization Details Recorded Time 02/26/2025 text/html Patient with bilateral progressive hearing loss. She recalls having left-sided ear surgery with Dr Perry about 42 years ago with what sounds like stapes surgery with vein graft. She reports that the hearing only improved for a couple of months, then went down again. She has been using binaural amplification for several decades now. Last audiogram showed severe mixed hearing loss bilaterally, much of which was noted to be conductive in nature. RICARDO ALLEN MD [address] [place] [address], [address], [facility] - [facility] 02/26/2025 11:43:30 OBGyn Episode No OBEpisode recorded.
--- OUTSIDE RECORDS SUMMARY | 2025-03-29 14:03 | XMS_ITS | Data Portability ---
Author Organization [place] - [facility], Allergy Address [address] [facility] [address] [place] [address] Care Team Providers Care Social Worker Palliative Care Name Role Phone SUBHA CLIFTON Primary Care Provider Assessment Encounter Date Assessment Date Assessment LastModified by Organization Details LastModified Time 01/08/2025 01/08/2025 64yo female stat us post left-sided otologic surgery with Dr. Perry at [facility] 40+ years ago presents for evaluation of longstanding hearing loss. Otologic exam demonstrates TMs are intact with well-aerated middle ear spaces. Right TM with general retraction. Audiometric testing demonstrates right-sided severe to profound conductive hearing loss and left severe to profound sensorineural hearing loss, stable compared to testing at [facility] in 2013. Patient is medically cleared [...] any concerns. [email or web address] Not available 01/08/2025 18:37:03 02/26/2025 02/26/2025 The patient's history, physical exam, [...] patient with the contact information for my frog shaker. We will begin the scheduling process and see the patient back at the time of surgery. Patient will require medical clearance from their primary care provider preoperatively. In the meantime, I have given her the copy of her audiogram and the number to the [facility] hearing aid program to make sure that she can have her current hearing aids adjusted appropriately. [email or web address] Not available 02/26/2025 11:43:18 Plan of Treatment [...] audio gram No observ ation record ed. [email or web address] Not Available 10/2024 16:50:17 Result Notes None recorded. Problems Name Problem SNOMED Code Status Onset Date Resolution Date Notes Provider Name and Address Organization Details Recorded Time Mixed conductive and sensorineur al hearing loss, bilateral 228098613 Active 2024 BONNIE SCHAFFER [address] [place] [address],[address] [address], [place], [address], [facility] 14:27:51 Otosclerosi s 40208149 Active 2024 RICARDO ALLEN MD [address] [place] [address], [place], [address], [facility] 5 20:31:01 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 Procedures Surgical History Date Name Laterality Status Provider Name and Address Organization Details Recorded Time 01/08/2025 Comp Audio with Tymps - 87237 & 37279 completed MARIUM TUCKER, BONNIE [address] [facility],[address], [address], [facility] 01/08/2025 14:27:44 Imaging Results None recorded. [...] ICD10 Code Diagnosis IMO Codes Diagnosis Note [id number] ZAIRE FIGUEROA PA-C [facility] of [address] [address] 01/08/2025 14:02:36 01/08/2025 17:03:26 Mixed conductive and sensorineural hearing loss, bilateral 717079297 H90.6 0579304 Right Ear:Severe to profound MHL with excellent speech discrimina tion.Type A tympanogra m.Left Ear:Severe to profound MHL with excellent speech discrimina tion.Type A tympanogra m. [id number] RICARDO ALLEN MD [facility] of [address] [address] 02/26/2025 11:03:18 02/26/2025 11:41:53 Mixed conductive and sensorineural hearing loss, bilateral 400313386 H90.6 6647614 Bilateral otosclerosis of ossicle of ears 3664013397 162478 H80.83 [id number] Health Concerns Section Related Observation LastModified by Organization Detai ls LastModified Time None Recorded Concern Status LastModified by Organization Details LastModified Time None Recorded Advance Directives Directive None Recorded Payers Insurance Date Sequence Insurance Name Policy Number Policy Vega Covered Member ID Vega Member ID Guarantor Name 02/25/2025 1 [facility] (MEDICARE REPLACEMENT/AD VANTAGE - PPO) [id number] Tata Stein [id number] Tata Stein 02/25/2025 1 [place] [facility] Tata Stein [id number] Tata Stein 02/26/2025 1 [facility] - DOS ON OR AFTER 2022 - ONE CARE (MEDICARE REPLACEMENT/AD VANTAGE - HMO) Tata Stein [id number] Tata Stein Notes Date Note Type Note Provider Name and Address Organization Details Recorded Time 01/08/2025 text/html ROS as noted in the HPI 64yo female presents for evaluation of hearing loss. This has been gradual for decades. She started wearing hearing aids bilaterally in 1986. Her current hearing aids were dispensed in [place] last year. The right sided hearing aid is broken which prompted her visit today to be connected with an biochemical engineer in the area. Denies tinnitus or vertigo. History of vague otologic surgery on the left ear with Dr. Perry at [facility] approximately 42 years ago. She reports a bone in the ear was scraped. She endorses improvement after surgery but lasted only a couple months. No family history of hearing loss early in life. Denies recurrent ear infections or ear drainage. ZAIRE FIGUEROA PA-C [address], [address], [place] - [facility] 01/08/2025 18:37:26 02/26/2025 text/html Patient with bilateral progressive hearing [...] be conductive in nature. RICARDO ALLEN MD 100 [facility],[address], [address], [place] - [facility] 02/26/2025 11:43:30 OBGyn Episode No OBEpisode recorded.
== END 2025-03-29 12:59 | disposition home or self-care (01) ==
LOC: HO.HKASLDS 12:58
PROVIDERS: PCP Student in an Organized Health Care Education/Training Program; Visit Provider Student in an Organized Health Care Education/Training Program
DX: E66.812 Obesity, class 2 (principal); M54.2 Cervicalgia; H91.93 Unspecified hearing loss, bilateral; R06.00 Dyspnea, unspecified; M54.9 Dorsalgia, unspecified; G89.29 Other chronic pain; R20.0 Anesthesia of skin; M19.90 Unspecified osteoarthritis, unspecified site; M25.561 Pain in right knee; M51.26 Other intervertebral disc displacement, lumbar region; M47.812 Spondylosis without myelopathy or radiculopathy, cervical region; R06.09 Other forms of dyspnea; K59.00 Constipation, unspecified; R20.2 Paresthesia of skin; R26.81 Unsteadiness on feet; Z87.11 Personal history of peptic ulcer disease; Z97.4 Presence of external hearing-aid; Z68.35 Body mass index [BMI] 35.0-35.9, adult; Z99.89 Dependence on other enabling machines and devices
CPT/HCPCS: 96127; 99202